=== PATIENT | male | born 1960 | race Caucasian/White ===

== ENCOUNTER 2022-02-08 16:35 | Inpatient (IN) | payer OTHER, MEDICAID ==
[~2022-02-08] VITALS: Ht 188 cm; Wt 46.2 kg
[2022-02-08] MEDS ORDERED: SODIUM CHLORIDE 0.9% 900 ML IV ONE (16:45)
[2022-02-08] MEDS ORDERED: VANCOMYCIN 1GM/WATER(PEG/NADA) 200 ML IV ONE (16:45)
[2022-02-08] MEDS ORDERED: CEFEPIME HCL 2 GM in DEXTROSE 5%-WATER 50 ML IV ONE (16:45)
[2022-02-08] MEDS ORDERED: 0.9% SODIUM CHLORIDE 10 ML SYRINGE IVP PRN (16:45)
[2022-02-08 17:14] LABS: BASOPHILS % (AUTO) 0.2 % (0.0-2.0); EOSINOPHILS % (AUTO) 0.2 % (1.0-6.0); HEMATOCRIT 40.3 % (41-53); HEMOGLOBIN 13.2 g/dL (13.5-17.5); LYMPHOCYTES # (AUTO) 0.4 K/uL (1.0-4.8); LYMPHOCYTES % (AUTO) 1.6 % (22.0-44.0); MEAN CORPUSCULAR HEMOGLOBIN 28.6 pg (26.0-34.0); MEAN CORPUSCULAR HGB CONC 32.7 G/dL (31.0-37.0); MEAN CORPUSCULAR VOLUME 88 fL (80-100); MONOCYTES # (AUTO) 0.5 K/uL (0.1-1.0); MONOCYTES % (AUTO) 1.8 % (2.0-9.0); PLATELET COUNT (AUTO) 130 K/uL (150-450); RED CELL DISTRIBUTION WIDTH 19.1 % (11.5-14.5)
[2022-02-08 17:38] LABS: INR 1.3 (0.9-1.1); PROTHROMBIN TIME 13.5 SEC (9.4-11.6)
[2022-02-08 17:42] LABS: NEUTROPHILS % (AUTO) 96.2 % (40.0-70.0)
[2022-02-08 17:59] LABS: LACTIC ACID 5.1 mmol/L (0.4-2.0)
[2022-02-08 18:46] LABS: ALBUMIN 2.4 g/dL (3.4-5.0); BILIRUBIN,TOTAL 0.9 mg/dL (0.1-1.0); CALCIUM, TOTAL 7.9 mg/dL (8.8-10.5); CREATININE 4.03 mg/dL (0.60-1.30); TOTAL PROTEIN, SERUM 6.3 g/dL (6.4-8.2)
[2022-02-08 18:50] LABS: POTASSIUM 7.1 mmol/L (3.5-5.1)
[2022-02-08] MEDS ORDERED: ALBUTEROL SULFATE 2.5 MG/0.5 ML NEB SOLUTION NEB ONE (19:00)
[2022-02-08] MEDS ORDERED: INSULIN REGULAR, HUMAN 100 UNITS/ML IVP ONE ×2 (19:00→21:30)
[2022-02-08] MEDS ORDERED: CALCIUM GLUCONATE 1,000 MG in DEXTROSE 5%-WATER 50 ML IV ONE (19:00)
[2022-02-08] MEDS ORDERED: DEXTROSE 50%-WATER 25 GM/50 ML SYRINGE IVP ONE ×2 (19:00→21:30)
[2022-02-08 19:08] LABS: APPEARANCE,URINE TURBID (CLEAR); BILIRUBIN,URINE NEGATIVE (NEGATIVE); GLUCOSE, URINE (UA) NEGATIVE (NEGATIVE); KETONES,URINE NEGATIVE (NEGATIVE); LEUKOCYTE ESTERASE ,URINE LARGE (NEGATIVE); NITRATE,URINE NEGATIVE (NEGATIVE); OCCULT BLOOD,URINE LARGE (NEGATIVE); PH,URINE 7.5 (5.0-8.0); PROTEIN,URINE 300-600,SEE CONFIRM mg/dL (NEGATIVE); SPECIFIC GRAVITIY, URINE 1.016 (1.003-1.030)
[2022-02-08 19:20] LABS: RBC,URINE 26-50 /HPF (0-2); SULFOSALICYLIC ACID,URINE 4+ (Negative)
[2022-02-08 19:21] LABS: BACTERIA,URINE Many /HPF (None Seen); WBC,URINE 51-100 /HPF (0-5)
[2022-02-08 19:26] LABS: INFLUENZA TYPE A NEGATIVE FOR TYPE A (NEGATIVE); INFLUENZA TYPE B NEGATIVE FOR TYPE B (NEGATIVE)
[2022-02-08] MEDS ORDERED: NOREPINEPHRINE 8 MG/D5%-WATER 250 ML IV PRN (19:30)
[2022-02-08] MEDS ORDERED: ONDANSETRON HCL 4 MG/2 ML VIAL IVP PRN (19:30)
[2022-02-08] MEDS: SODIUM CHLORIDE 0.9% 1,000 ML IV SCH (20:17)
[2022-02-08 20:39] LABS: CREATININE,URINE RANDOM 39.3 mg/dL (30.0-125.0)
[2022-02-08] MEDS ORDERED: SODIUM CHLORIDE 0.9% 1,000 ML IV ONE (21:00)
[2022-02-08] MEDS: NOREPINEPHRINE 8 MG/D5%-WATER 250 ML IV PRN (21:06)
[2022-02-08] MEDS: PIPERACILLIN SODIUM/TAZOBACTAM 2.25 GM in DEXTROSE 5%-WATER 50 ML IV SCH (21:07)
[2022-02-08 21:08] LABS: CALCIUM, TOTAL 7.9 mg/dL (8.8-10.5); CREATININE 4.22 mg/dL (0.60-1.30)
[2022-02-08 21:13] LABS: POTASSIUM 6.5 mmol/L (3.5-5.1)
[2022-02-08] MEDS ORDERED: SODIUM BICARBONATE [ADULT] 8.4% 50 MEQ/50 ML SYRINGE IVP ONE (21:15)
[2022-02-08] MEDS ORDERED: ALBUTEROL SULFATE 5 MG/ML 20 ML NEB SOLN [BULK] NEB ONE (21:30)
[2022-02-08] MEDS ORDERED: CALCIUM GLUCONATE 100 MG/ML 10 ML IVP ONE (21:30)
[2022-02-08] MEDS ORDERED: ETOMIDATE 2 MG/ML 10 ML VIAL ONE (21:57)
[2022-02-08] MEDS ORDERED: LORazepam 2 MG/ML VIAL IVP ONE (22:00)
[2022-02-08] MEDS ORDERED: LACO100 PO (22:47)
[2022-02-08] MEDS ORDERED: DEXMEDETOMIDINE HCL 400 MCG in SODIUM CHLORIDE 0.9% 96 ML IV PRN (23:00)
[2022-02-08] MEDS: FentaNYL CIT 1000MCG/0.9% NACL 100 ML IV PRN (23:47)
[2022-02-08] MEDS: MIDAZOLAM HCL 100 MG in SODIUM CHLORIDE 0.9% 180 ML IV PRN (23:48)
[2022-02-08] MEDS: PHENYLEPHRINE 200 MG/D5%-WATER 250 ML IV PRN (23:49)
[2022-02-09] MEDS: FentaNYL CIT 1000MCG/0.9% NACL 100 ML IV PRN (00:33)
[2022-02-09] MEDS: MIDAZOLAM HCL 100 MG in SODIUM CHLORIDE 0.9% 180 ML IV PRN (00:33)
[2022-02-09 00:38] LABS: ABG BASE EXCESS -14.8 mmol/L (-2.0-3.0); ABG CARBOXYHEMOGLOBIN 0.3 % (0.0-1.5); ABG HCO3 13.8 mmol/L (22.0-26.0); ABG METHEMOGLOBIN 0.4 % (0.0-1.5); ABG OXYGEN CONTENT 18.2 mL/dL (15.0-23.0); ABG OXYGEN SATURATION 99.4 % (95.0-98.0); ABG OXYHEMOGLOBIN 98.7 % (94.0-100.0); ABG PCO2 37 mmHg (35-45); ABG TOTAL HEMOGLOBIN 12.4 G/dL (12.0-18.0); PO2, ARTERIAL BG 372.8 mmHg (84.0-92.0); SOURCE, BLOOD GAS ARTERIAL; TEMPERATURE, FAHRENHEIT, BG 98.6 FAHREN (96.0-98.6)
[2022-02-09 00:39] LABS: ABG PH 7.179 (7.35-7.450); O2 DEVICE,BLOOD GAS VENTILATOR (ROOM AIR); PEEP,BG 5 cm H2O; SITE, BLOOD GAS LFT RADIAL; VT, ABG 450 ml
[2022-02-09] MEDS: VASOPRESSIN 40 UNITS in DEXTROSE 5%-WATER 98 ML IV PRN ×2 (02:12→02:14)
[2022-02-09] MEDS: PIPERACILLIN SODIUM/TAZOBACTAM 2.25 GM in DEXTROSE 5%-WATER 50 ML IV SCH ×3 (05:03→21:18)
[2022-02-09 05:19] LABS: BASOPHILS % (AUTO) 0.1 % (0.0-2.0); EOSINOPHILS % (AUTO) 2.1 % (1.0-6.0); HEMATOCRIT 36.4 % (41-53); LYMPHOCYTES # (AUTO) 0.4 K/uL (1.0-4.8); LYMPHOCYTES % (AUTO) 1.3 % (22.0-44.0); MEAN CORPUSCULAR HEMOGLOBIN 28.8 pg (26.0-34.0); MEAN CORPUSCULAR VOLUME 87 fL (80-100); MONOCYTES # (AUTO) 0.3 K/uL (0.1-1.0); MONOCYTES % (AUTO) 1.1 % (2.0-9.0); NEUTROPHILS # (AUTO) 28.2 K/uL (1.8-7.7); PLATELET COUNT (AUTO) 118 K/uL (150-450); RED BLOOD CELL COUNT(AUTO) 4.18 MIL/uL (4.50-5.90); RED CELL DISTRIBUTION WIDTH 19.2 % (11.5-14.5)
[2022-02-09] MEDS: SODIUM CHLORIDE 0.9% 1,000 ML IV SCH (05:20)
[2022-02-09 05:21] LABS: NEUTROPHILS % (AUTO) 95.4 % (40.0-70.0)
[2022-02-09 05:27] LABS: CALCIUM, TOTAL 8.4 mg/dL (8.8-10.5); CREATININE 3.39 mg/dL (0.60-1.30); MAGNESIUM 2.3 mg/dL (1.80-2.40)
[2022-02-09 05:31] LABS: POTASSIUM 6.3 mmol/L (3.5-5.1)
[2022-02-09] MEDS ORDERED: SODIUM ZIRCONIUM CYCLOSILICATE 5 GM POWDER PACKET PO ONE (05:45)
[2022-02-09] MEDS ORDERED: INSULIN REGULAR, HUMAN 100 UNITS/ML IVP ONE (05:45)
[2022-02-09] MEDS ORDERED: DEXTROSE 50%-WATER 25 GM/50 ML SYRINGE IVP ONE (05:45)
[2022-02-09] MEDS ORDERED: ALBUTEROL SULFATE 5 MG/ML 20 ML NEB SOLN [BULK] NEB ONE (05:45)
[2022-02-09] MEDS ORDERED: CALCIUM GLUCONATE 100 MG/ML 10 ML IVP ONE (05:45)
[2022-02-09] MEDS ORDERED: 0.9% SODIUM CHLORIDE 15 ML NEB SOLUTION NEB ONE (08:01)
[2022-02-09] MEDS: LACOSAMIDE 100 MG TABLET PO SCH ×2 (08:58→20:12)
[2022-02-09 09:56] LABS: COVID AG,FIA SOURCE NASAL SWAB
[2022-02-09] MEDS ORDERED: LACO150T2 PO (11:14)
[2022-02-09] MEDS ORDERED: LACO100 PO (11:14)
[2022-02-09 12:26] LABS: CALCIUM, TOTAL 7.9 mg/dL (8.8-10.5); CREATININE 3.55 mg/dL (0.60-1.30); POTASSIUM 5.9 mmol/L (3.5-5.1)
[2022-02-09] MEDS: INSULIN LISPRO 100 UNITS/ML SQ PRN ×2 (12:41→18:50)
[2022-02-09] MEDS: SODIUM BICARBONATE 75 MEQ in SODIUM CHLORIDE 0.45% 1,000 ML IV SCH ×2 (12:50→22:48)
[2022-02-09] MEDS: PHENYLEPHRINE 200 MG/D5%-WATER 250 ML IV PRN ×2 (12:51→20:11)
[2022-02-09] MEDS: NOREPINEPHRINE 8 MG/D5%-WATER 250 ML IV PRN ×2 (12:52→19:47)
[2022-02-09 17:26] LABS: CALCIUM, TOTAL 7.6 mg/dL (8.8-10.5); CREATININE 3.41 mg/dL (0.60-1.30); POTASSIUM 5.1 mmol/L (3.5-5.1)
[2022-02-09 19:01] LABS: GLUCOSE,POINT OF CARE 262 MG/DL (70-110)
[2022-02-09] MEDS ORDERED: CLINDAMYCIN 900 MG/D5% WATER 50 ML IV ONE (22:00)
[2022-02-09] MEDS ORDERED: *CLINICAL-MEROPENEM DOSING CLINICAL ONE (22:00)
[2022-02-09] MEDS: INSULIN GLARGINE,HUM.REC.ANLOG 100 UNITS/ML SQ SCH (22:15)
[2022-02-10] MEDS ORDERED: SODIUM CHLORIDE 0.9% 250 ML IV ONE ×3 (01:45→15:00)
[2022-02-10] MEDS: NOREPINEPHRINE 8 MG/D5%-WATER 250 ML IV PRN ×2 (02:41→11:30)
[2022-02-10] MEDS: MEROPENEM 500 MG in SODIUM CHLORIDE 0.9% 50 ML IV SCH ×2 (04:27→16:40)
[2022-02-10] MEDS: VASOPRESSIN 40 UNITS in DEXTROSE 5%-WATER 98 ML IV PRN (04:28)
[2022-02-10 05:41] LABS: HEMATOCRIT 29.4 % (41-53); HEMOGLOBIN 9.7 g/dL (13.5-17.5); MEAN CORPUSCULAR HEMOGLOBIN 28.9 pg (26.0-34.0); MEAN CORPUSCULAR HGB CONC 33.2 G/dL (31.0-37.0); MEAN CORPUSCULAR VOLUME 87 fL (80-100); RED BLOOD CELL COUNT(AUTO) 3.38 MIL/uL (4.50-5.90); RED CELL DISTRIBUTION WIDTH 19.3 % (11.5-14.5)
[2022-02-10 05:56] LABS: C.DIFF GDH ANTIGEN, Stool Positive (Negative); C.DIFF TOXINS A&B, Stool Negative (Negative)
[2022-02-10 05:57] LABS: CALCIUM, TOTAL 7.3 mg/dL (8.8-10.5); CREATININE 2.95 mg/dL (0.60-1.30); MAGNESIUM 1.7 mg/dL (1.80-2.40); POTASSIUM 4.5 mmol/L (3.5-5.1)
[2022-02-10 08:20] LABS: PLATELET COUNT (AUTO) 86 K/uL (150-450)
[2022-02-10 08:23] LABS: BAND NEUTROPHILS % (MANUAL) 8 % (0-5); LYMPHOCYTES % (MANUAL) 6 % (22-44); MONOCYTES % (MANUAL) 3 % (2-9); SEGMENTED NEUTROPHILS % 83 % (40-70)
[2022-02-10] MEDS: LACOSAMIDE 100 MG TABLET PO SCH ×2 (09:15→20:49)
[2022-02-10] MEDS: SODIUM BICARBONATE 75 MEQ in SODIUM CHLORIDE 0.45% 1,000 ML IV SCH ×2 (09:15→20:49)
[2022-02-10] MEDS ORDERED: MIDAZOLAM HCL 100 MG in SODIUM CHLORIDE 0.9% 180 ML IV PRN (11:00)
[2022-02-10 12:00] VITALS: BP 110/62
[2022-02-10] MEDS ORDERED: ROCURONIUM BROMIDE 10 MG/ML 5 ML VIAL IVP ONE (12:00)
[2022-02-10] MEDS: INSULIN LISPRO 100 UNITS/ML SQ PRN (12:51)
[2022-02-10] MEDS ORDERED: LORazepam 2 MG/ML VIAL IVP ONE (13:30)
[2022-02-10] MEDS: ALBUMIN HUMAN 25%-25GM/100ML 100 ML IV SCH ×2 (14:07→20:50)
[2022-02-10] MEDS: FentaNYL CIT 1000MCG/0.9% NACL 100 ML IV PRN ×2 (14:07→23:20)
[2022-02-10] MEDS ORDERED: LORazepam 2 MG/ML VIAL IVP PRN (15:00)
[2022-02-10 16:00] VITALS: BP 93/65
[2022-02-10] MEDS ORDERED: SODIUM CHLORIDE 0.9% 500 ML IV ONE (16:43)
[2022-02-10 19:07] LABS: GLUCOSE,POINT OF CARE 159 MG/DL (70-110)
[2022-02-10 20:00] VITALS: BP 94/55
[2022-02-10] MEDS: INSULIN GLARGINE,HUM.REC.ANLOG 100 UNITS/ML SQ SCH (20:49)
[2022-02-10 20:55] LABS: GLUCOSE,POINT OF CARE 307 MG/DL (70-110)
[2022-02-10 20:56] LABS: GLUCOSE,POINT OF CARE 142 MG/DL (70-110)
[2022-02-10] MEDS: PHENYLEPHRINE 200 MG/D5%-WATER 250 ML IV PRN (23:21)
[2022-02-11] VITALS: BP 99/62
[2022-02-11] MEDS: ALBUMIN HUMAN 25%-25GM/100ML 100 ML IV SCH ×4 (01:10→21:07)
[2022-02-11 04:00] VITALS: BP 97/60
[2022-02-11] MEDS: VASOPRESSIN 40 UNITS in DEXTROSE 5%-WATER 98 ML IV PRN (04:17)
[2022-02-11] MEDS: MEROPENEM 500 MG in SODIUM CHLORIDE 0.9% 50 ML IV SCH ×2 (04:17→17:28)
[2022-02-11 06:10] LABS: CALCIUM, TOTAL 7.3 mg/dL (8.8-10.5); CREATININE 2.25 mg/dL (0.60-1.30)
[2022-02-11 06:12] LABS: MAGNESIUM 1.4 mg/dL (1.80-2.40); PHOSPHORUS 3.7 mg/dL (2.5-4.9)
[2022-02-11 06:18] LABS: POTASSIUM 2.6 mmol/L (3.5-5.1)
[2022-02-11 06:41] LABS: GLUCOSE,POINT OF CARE 122 MG/DL (70-110)
[2022-02-11 06:41] LABS: GLUCOSE,POINT OF CARE 134 MG/DL (70-110)
[2022-02-11] MEDS: SODIUM BICARBONATE 75 MEQ in SODIUM CHLORIDE 0.45% 1,000 ML IV SCH (06:43)
[2022-02-11] MEDS ORDERED: MAGNESIUM SULFATE 1 GM in DEXTROSE 5%-WATER 50 ML IV ONE (07:30)
[2022-02-11 07:52] LABS: HEMATOCRIT 23.2 % (41-53); HEMOGLOBIN 7.9 g/dL (13.5-17.5); MEAN CORPUSCULAR HEMOGLOBIN 29.4 pg (26.0-34.0); MEAN CORPUSCULAR HGB CONC 34.2 G/dL (31.0-37.0); MEAN CORPUSCULAR VOLUME 86 fL (80-100); PLATELET COUNT (AUTO) 49 K/uL (150-450); RED CELL DISTRIBUTION WIDTH 19.5 % (11.5-14.5)
[2022-02-11 08:00] VITALS: BP 107/61
[2022-02-11 08:34] LABS: BAND NEUTROPHILS % (MANUAL) 7 % (0-5); EOSINOPHILS % (MANUAL) 1 % (1-6); LYMPHOCYTES % (MANUAL) 7 % (22-44); MONOCYTES % (MANUAL) 3 % (2-9); SEGMENTED NEUTROPHILS % 82 % (40-70)
[2022-02-11] MEDS: POTASSIUM CHL 10 MEQ/WATER 50 ML IV SCH ×8 (08:45→23:48)
[2022-02-11] MEDS: LACOSAMIDE 100 MG TABLET PO SCH ×2 (08:45→21:07)
[2022-02-11 12:00] VITALS: BP 103/65
[2022-02-11 12:21] LABS: ABG BASE EXCESS 1.2 mmol/L (-2.0-3.0); ABG CARBOXYHEMOGLOBIN 0.4 % (0.0-1.5); ABG HCO3 25.6 mmol/L (22.0-26.0); ABG METHEMOGLOBIN 0.3 % (0.0-1.5); ABG OXYGEN CONTENT 12.7 mL/dL (15.0-23.0); ABG OXYHEMOGLOBIN 98.3 % (94.0-100.0); ABG PCO2 37 mmHg (35-45); ABG PH 7.451 (7.35-7.450); ABG TOTAL HEMOGLOBIN 8.9 G/dL (12.0-18.0); PO2, ARTERIAL BG 153.2 mmHg (84.0-92.0); SOURCE, BLOOD GAS ARTERIAL; TEMPERATURE, FAHRENHEIT, BG 97.3 FAHREN (96.0-98.6)
[2022-02-11 12:22] LABS: ABG A-A DIFF O2 54.1 mmHg (10-20.0); O2 DEVICE,BLOOD GAS VENTILATOR (ROOM AIR); PEEP,BG 5 cm H2O; SITE, BLOOD GAS RT BRACHIAL; VT, ABG 450 ml
[2022-02-11] MEDS: DEXTROSE 50%-WATER 25 GM/50 ML SYRINGE IVP PRN ×2 (12:38→20:53)
[2022-02-11 15:04] LABS: CALCIUM, TOTAL 7.7 mg/dL (8.8-10.5); CREATININE 1.82 mg/dL (0.60-1.30); MAGNESIUM 1.6 mg/dL (1.80-2.40); PHOSPHORUS 2.5 mg/dL (2.5-4.9)
[2022-02-11 15:09] LABS: POTASSIUM 2.5 mmol/L (3.5-5.1)
[2022-02-11] MEDS ORDERED: MAGNESIUM SULFATE 2 GM/WATER 50 ML IV ONE (15:30)
[2022-02-11] MEDS ORDERED: SODIUM CHLORIDE 0.45% 1,000 ML IV SCH (15:30)
[2022-02-11 16:00] VITALS: BP 100/61
[2022-02-11] MEDS ORDERED: DAPTOMYCIN 450 MG in SODIUM CHLORIDE 0.9% 50 ML IV SCH (18:00)
[2022-02-11 19:01] LABS: GLUCOSE,POINT OF CARE 55 MG/DL (70-110)
[2022-02-11 19:01] LABS: GLUCOSE,POINT OF CARE 153 MG/DL (70-110)
[2022-02-11 19:01] LABS: GLUCOSE,POINT OF CARE 84 MG/DL (70-110)
[2022-02-11 19:01] LABS: GLUCOSE,POINT OF CARE 143 MG/DL (70-110)
[2022-02-11 20:00] VITALS: BP 104/59
[2022-02-11 21:06] LABS: CREATININE 1.86 mg/dL (0.60-1.30); MAGNESIUM 2.1 mg/dL (1.80-2.40); PHOSPHORUS 2.2 mg/dL (2.5-4.9)
[2022-02-11] MEDS: VANCOMYCIN HCL 125 MG/2.5 ML SOLUTION ORAL.SYG PO SCH (21:06)
[2022-02-11] MEDS: DOXYCYCLINE HYCLATE 100 MG in DEXTROSE 5%-WATER 100 ML IV SCH (21:07)
[2022-02-11 21:09] LABS: POTASSIUM 2.9 mmol/L (3.5-5.1)
[2022-02-11 21:11] LABS: GLUCOSE,POINT OF CARE 64 MG/DL (70-110)
[2022-02-11] MEDS: DEXTROSE 5%-0.45% SODIUM CHL 1,000 ML IV SCH (22:43)
[2022-02-12] VITALS: BP 102/52
[2022-02-12] MEDS: VANCOMYCIN HCL 125 MG/2.5 ML SOLUTION ORAL.SYG PO SCH ×4 (01:16→18:49)
[2022-02-12] MEDS: ALBUMIN HUMAN 25%-25GM/100ML 100 ML IV SCH ×4 (01:16→19:55)
[2022-02-12 02:10] LABS: GLUCOSE,POINT OF CARE 138 MG/DL (70-110)
[2022-02-12 02:10] LABS: GLUCOSE,POINT OF CARE 124 MG/DL (70-110)
[2022-02-12 02:10] LABS: GLUCOSE,POINT OF CARE 37 MG/DL (70-110)
[2022-02-12 04:00] VITALS: BP 94/48
[2022-02-12] MEDS: MEROPENEM 500 MG in SODIUM CHLORIDE 0.9% 50 ML IV SCH ×2 (04:14→16:15)
[2022-02-12] MEDS: PHENYLEPHRINE 200 MG/D5%-WATER 250 ML IV PRN ×2 (05:55→17:27)
[2022-02-12 06:39] LABS: EOSINOPHILS % (AUTO) 1.7 % (1.0-6.0); HEMOGLOBIN 7.4 g/dL (13.5-17.5); LYMPHOCYTES # (AUTO) 0.5 K/uL (1.0-4.8); LYMPHOCYTES % (AUTO) 7.6 % (22.0-44.0); MEAN CORPUSCULAR HEMOGLOBIN 28.7 pg (26.0-34.0); MEAN CORPUSCULAR HGB CONC 33.5 G/dL (31.0-37.0); MEAN CORPUSCULAR VOLUME 86 fL (80-100); MONOCYTES # (AUTO) 0.2 K/uL (0.1-1.0); MONOCYTES % (AUTO) 3.5 % (2.0-9.0); NEUTROPHILS # (AUTO) 5.9 K/uL (1.8-7.7); PLATELET COUNT (AUTO) 34 K/uL (150-450); RED BLOOD CELL COUNT(AUTO) 2.57 MIL/uL (4.50-5.90); RED CELL DISTRIBUTION WIDTH 18.7 % (11.5-14.5)
[2022-02-12] MEDS: INSULIN LISPRO 100 UNITS/ML SQ PRN ×3 (06:39→17:35)
[2022-02-12 06:44] LABS: NEUTROPHILS % (AUTO) 87.2 % (40.0-70.0)
[2022-02-12 06:52] LABS: GLUCOSE,POINT OF CARE 156 MG/DL (70-110)
[2022-02-12 06:53] LABS: ALBUMIN 2.8 g/dL (3.4-5.0); BILIRUBIN,TOTAL 3.6 mg/dL (0.1-1.0); CALCIUM, TOTAL 8.2 mg/dL (8.8-10.5); CREATININE 1.76 mg/dL (0.60-1.30); MAGNESIUM 1.8 mg/dL (1.80-2.40); PHOSPHORUS 1.7 mg/dL (2.5-4.9); TOTAL PROTEIN, SERUM 5.1 g/dL (6.4-8.2)
[2022-02-12 07:01] LABS: POTASSIUM 2.9 mmol/L (3.5-5.1)
[2022-02-12] MEDS: FentaNYL CIT 1000MCG/0.9% NACL 100 ML IV PRN (07:30)
[2022-02-12] MEDS ORDERED: SODIUM PHOS,M-BASIC-D-BASIC 20 MEQ in DEXTROSE 5%-WATER 100 ML IV ONE (08:30)
[2022-02-12] MEDS: DOXYCYCLINE HYCLATE 100 MG in DEXTROSE 5%-WATER 100 ML IV SCH ×2 (09:10→19:55)
[2022-02-12] MEDS: DEXTROSE 5%-0.45% SODIUM CHL 1,000 ML IV SCH ×2 (09:17→17:27)
[2022-02-12] MEDS: POTASSIUM CHL 10 MEQ/WATER 50 ML IV SCH ×7 (09:26→20:30)
[2022-02-12] MEDS: LACOSAMIDE 100 MG TABLET PO SCH ×2 (09:29→20:07)
[2022-02-12 12:55] VITALS: BP 110/58
[2022-02-12 16:00] VITALS: BP 108/67
[2022-02-12 19:21] LABS: GLUCOSE,POINT OF CARE 200 MG/DL (70-110)
[2022-02-12 19:21] LABS: GLUCOSE,POINT OF CARE 155 MG/DL (70-110)
[2022-02-12 20:00] VITALS: BP 112/70
[2022-02-13] VITALS: BP 131/72
[2022-02-13] MEDS: VANCOMYCIN HCL 125 MG/2.5 ML SOLUTION ORAL.SYG PO SCH ×4 (00:04→18:13)
[2022-02-13] MEDS: INSULIN LISPRO 100 UNITS/ML SQ PRN ×4 (00:42→18:13)
[2022-02-13 01:31] LABS: GLUCOSE,POINT OF CARE 239 MG/DL (70-110)
[2022-02-13] MEDS: ALBUMIN HUMAN 25%-25GM/100ML 100 ML IV SCH ×3 (01:53→15:32)
[2022-02-13] MEDS: DEXTROSE 5%-0.45% SODIUM CHL 1,000 ML IV SCH ×2 (03:24→14:30)
[2022-02-13 04:00] VITALS: BP 134/80
[2022-02-13] MEDS: MEROPENEM 500 MG in SODIUM CHLORIDE 0.9% 50 ML IV SCH (06:04)
[2022-02-13 06:35] LABS: BASOPHILS % (AUTO) 0.1 % (0.0-2.0); EOSINOPHILS % (AUTO) 1.2 % (1.0-6.0); HEMATOCRIT 25.4 % (41-53); HEMOGLOBIN 8.5 g/dL (13.5-17.5); LYMPHOCYTES # (AUTO) 0.6 K/uL (1.0-4.8); LYMPHOCYTES % (AUTO) 7.7 % (22.0-44.0); MEAN CORPUSCULAR HGB CONC 33.5 G/dL (31.0-37.0); MEAN CORPUSCULAR VOLUME 87 fL (80-100); MONOCYTES # (AUTO) 0.5 K/uL (0.1-1.0); MONOCYTES % (AUTO) 6.4 % (2.0-9.0); NEUTROPHILS # (AUTO) 6.8 K/uL (1.8-7.7); NEUTROPHILS % (AUTO) 84.6 % (40.0-70.0); PLATELET COUNT (AUTO) 27 K/uL (150-450); RED BLOOD CELL COUNT(AUTO) 2.94 MIL/uL (4.50-5.90); RED CELL DISTRIBUTION WIDTH 18.8 % (11.5-14.5)
[2022-02-13] MEDS: PHENYLEPHRINE 200 MG/D5%-WATER 250 ML IV PRN (06:48)
[2022-02-13 07:04] LABS: ALBUMIN 3.4 g/dL (3.4-5.0); BILIRUBIN,TOTAL 5.7 mg/dL (0.1-1.0); C-REACTIVE PROTEIN QUANT 12.07 mg/dL (0.00-0.30); CALCIUM, TOTAL 9.1 mg/dL (8.8-10.5); CREATININE 1.45 mg/dL (0.60-1.30); MAGNESIUM 1.4 mg/dL (1.80-2.40); TOTAL PROTEIN, SERUM 5.5 g/dL (6.4-8.2)
[2022-02-13] MEDS: LACOSAMIDE 100 MG TABLET PO SCH (07:26)
[2022-02-13] MEDS: DOXYCYCLINE HYCLATE 100 MG in DEXTROSE 5%-WATER 100 ML IV SCH (07:26)
[2022-02-13 08:00] VITALS: BP 134/78
[2022-02-13] MEDS ORDERED: POTASSIUM PHOS,M-BASIC-D-BASIC 20 MEQ in DEXTROSE 5%-WATER 100 ML IV ONE (08:30)
[2022-02-13] MEDS ORDERED: MAGNESIUM SULFATE 2 GM/WATER 50 ML IV ONE (08:30)
[2022-02-13] MEDS: POTASSIUM CHL 10 MEQ/WATER 50 ML IV SCH ×2 (10:03→10:38)
[2022-02-13 12:00] VITALS: BP 110/67
[2022-02-13] MEDS ORDERED: METOCLOPRAMIDE HCL 5 MG/ML 2 ML VIAL IVP PRN (13:45)
[2022-02-13] MEDS ORDERED: MEROPENEM 1 GM in SODIUM CHLORIDE 0.9% 100 ML IV SCH (14:00)
[2022-02-13] MEDS ORDERED: MEBROFENIN TC99M/MCL ISOTOPE 1 EA INJ INJ ONE (14:10)
[2022-02-13] MEDS ORDERED: *CLINICAL-RX DOSING [ENTER DRUG IN COMMENTS] CLINICAL ONE (15:00)
[2022-02-13 16:00] VITALS: BP 116/68
[2022-02-13] MEDS ORDERED: AMPICILLIN SODIUM 2 GM/NS 100 ML IV SCH (16:00)
[2022-02-13] MEDS ORDERED: IMIPENEM/CILASTATIN SODIUM 500 MG in SODIUM CHLORIDE 0.9% 100 ML IV SCH (17:00)
[2022-02-13 19:21] LABS: GLUCOSE,POINT OF CARE 195 MG/DL (70-110)
[2022-02-13 19:21] LABS: GLUCOSE,POINT OF CARE 187 MG/DL (70-110)
[2022-02-13 19:21] LABS: GLUCOSE,POINT OF CARE 209 MG/DL (70-110)
[2022-02-14 19:06] LABS: LEGIONELLA PNEUMO AG URINE Negative (Negative); S PNEUMO SOURCE Urine; STREP PNEUMONIAE AG URINE Negative (Negative)
== END 2022-02-13 19:40 | DRG 870 ==
LOC: EMS 19:16 → ICU 02-10 09:39
PROVIDERS: ADMIT Internal Medicine; ATTEND Internal Medicine
PROC: 0BH17EZ Insertion of Endotracheal Airway into Trachea, Via Natural or Artificial Opening (ICD-10-PCS; principal; 2022-02-10)
PROC: 5A1955Z Respiratory Ventilation, Greater than 96 Consecutive Hours (ICD-10-PCS; 2022-02-10)
DX: A41.51 Sepsis due to Escherichia coli [E. coli] (principal); E10.10 Type 1 diabetes mellitus with ketoacidosis without coma; E43 Unspecified severe protein-calorie malnutrition; N17.0 Acute kidney failure with tubular necrosis; J96.00 Acute respiratory failure, unspecified whether with hypoxia or hypercapnia; J18.9 Pneumonia, unspecified organism; I49.01 Ventricular fibrillation; R53.2 Functional quadriplegia; R65.21 Severe sepsis with septic shock; A04.72 Enterocolitis due to Clostridium difficile, not specified as recurrent; E87.1 Hypo-osmolality and hyponatremia; Z16.24 Resistance to multiple antibiotics; N39.0 Urinary tract infection, site not specified; M62.82 Rhabdomyolysis; K80.21 Calculus of gallbladder without cholecystitis with obstruction; G93.1 Anoxic brain damage, not elsewhere classified; Z68.1 Body mass index [BMI] 19.9 or less, adult; J98.11 Atelectasis; J90 Pleural effusion, not elsewhere classified; Z20.822 Contact with and (suspected) exposure to COVID-19; D64.9 Anemia, unspecified; N40.1 Benign prostatic hyperplasia with lower urinary tract symptoms; N18.32 Chronic kidney disease, stage 3b; R13.10 Dysphagia, unspecified; K59.00 Constipation, unspecified; I48.0 Paroxysmal atrial fibrillation; I12.9 Hypertensive chronic kidney disease with stage 1 through stage 4 chronic kidney disease, or unspecified chronic kidney disease; G40.909 Epilepsy, unspecified, not intractable, without status epilepticus; E87.6 Hypokalemia; E87.5 Hyperkalemia; B96.4 Proteus (mirabilis) (morganii) as the cause of diseases classified elsewhere; F32.9 Major depressive disorder, single episode, unspecified; K21.9 Gastro-esophageal reflux disease without esophagitis; E10.22 Type 1 diabetes mellitus with diabetic chronic kidney disease; E78.1 Pure hyperglyceridemia; E83.42 Hypomagnesemia; E83.39 Other disorders of phosphorus metabolism; D69.6 Thrombocytopenia, unspecified; Z79.899 Other long term (current) drug therapy; Z95.810 Presence of automatic (implantable) cardiac defibrillator; Z93.1 Gastrostomy status; Z87.440 Personal history of urinary (tract) infections; Z79.4 Long term (current) use of insulin; Z74.01 Bed confinement status; Z88.8 Allergy status to other drugs, medicaments and biological substances
CPT/HCPCS: 36600; 70450; 71045; 71250; 72192; 74150; 78226; 80048; 80053; 81001; 81002; 82009; 82271; 82550; 82570; 82805; 82962; 83605; 83735; 83880; 84100; 84132; 84300; 84484; 85025; 85610; 86140; 86738; 87040; 87045; 87077; 87081; 87086; 87186; 87205; 87324; 87449; 87804; 87899; 89055; 93005; 93306; 93970; 94002; 94003; 99291; A9537; G0238; G0378; J0290; J0610; J0692; J0743; J0878; J1815; J2060; J2185; J2250; J2370; J2543; J2765; J3475; J3480; J3490; J7040; J7050; J7060; P9046; Q9967; 36415-L1; 36415-TC; J7611; X7700

== ENCOUNTER 2023-11-10 13:46 | Emergency (ER) | payer OTHER ==
[~2023-11-10] VITALS: Ht 172.7 cm; Wt 48.3 kg
[~2023-11-10 13:46] MED LIST: LACO100T14 PO; LACO150T2 PO
[2023-11-10 15:04] VITALS: TEMP 101.2
[2023-11-10] MEDS ORDERED: ATOR20TA65 PO (15:24)
[2023-11-10] MEDS ORDERED: MIDO5TAB5 PO (15:24)
[2023-11-10] MEDS ORDERED: OMEP20CA12 PO (15:24)
[2023-11-10] MEDS ORDERED: TAMS0.4C94 PO (15:24)
[2023-11-10] MEDS ORDERED: MIRT-92 PO (15:24)
[2023-11-10] MEDS ORDERED: INSU100I94 SQ (15:24)
[2023-11-10] MEDS ORDERED: INSU100V SQ (15:24)
[2023-11-10] MEDS: CefTRIAXone 1 GM/DEXTROSE 50 ML IV ONE (15:27)
[2023-11-10] MEDS: SODIUM CHLORIDE 0.9% 1,450 ML IV ONE (15:28)
[2023-11-10] MEDS ORDERED: 0.9% SODIUM CHLORIDE 10 ML SYRINGE IVP PRN (15:30)
[2023-11-10 15:53] LABS: BASOPHILS % (AUTO) 0.8 % (0.0-2.0); EOSINOPHILS % (AUTO) 0.1 % (1.0-6.0); HEMATOCRIT 31.8 % (41-53); HEMOGLOBIN 10.1 g/dL (13.5-17.5); LYMPHOCYTES % (AUTO) 5.2 % (22.0-44.0); MEAN CORPUSCULAR HEMOGLOBIN 26.4 pg (26.0-34.0); MEAN CORPUSCULAR HGB CONC 31.7 G/dL (31.0-37.0); MEAN CORPUSCULAR VOLUME 83 fL (80-100); MONOCYTES # (AUTO) 0.8 K/uL (0.1-1.0); MONOCYTES % (AUTO) 4.2 % (2.0-9.0); PLATELET COUNT (AUTO) 319 K/uL (150-450); RED BLOOD CELL COUNT(AUTO) 3.81 MIL/uL (4.50-5.90); RED CELL DISTRIBUTION WIDTH 17.2 % (11.5-14.5)
[2023-11-10 15:54] LABS: APPEARANCE,URINE HAZY (CLEAR); BILIRUBIN,URINE NEGATIVE (NEGATIVE); COLOR,URINE YELLOW (YELLOW); GLUCOSE, URINE (UA) >=1000 mg/dL (NEGATIVE); KETONES,URINE NEGATIVE (NEGATIVE); LEUKOCYTE ESTERASE ,URINE LARGE (NEGATIVE); NITRATE,URINE POSITIVE (NEGATIVE); OCCULT BLOOD,URINE SMALL (NEGATIVE); PROTEIN,URINE 30-70 mg/dL (NEGATIVE); SPECIFIC GRAVITIY, URINE 1.026 (1.003-1.030); UROBILINOGEN,URINE <=1.0 mg/dL (<=1.0)
[2023-11-10 15:56] LABS: NEUTROPHILS % (AUTO) 89.7 % (40.0-70.0)
[2023-11-10 16:01] LABS: ANION GAP 7 mmol/L (8-16); CALCIUM, TOTAL 9.3 mg/dL (8.8-10.5); CARBON DIOXIDE 28 mmol/L (22-29); CHLORIDE 101 mmol/L (98-107); CREATININE 0.78 mg/dL (0.60-1.30); GLOMERULAR FILTR. RATE CALC > 60 mL/min (>60); GLUCOSE,RANDOM 213 mg/dL (70-110); POTASSIUM 3.8 mmol/L (3.5-5.1); SODIUM SERUM 136 mmol/L (136-145); UREA NITROGEN, BLOOD 28 mg/dL (7-18)
[2023-11-10 16:07] LABS: ALANINE AMINOTRANSFERASE 127 U/L (12-78); ALBUMIN 2.4 g/dL (3.4-5.0); ALKALINE PHOSPHATASE 226 U/L (46-116); ASPARTATE AMINOTRANSFERASE 33 U/L (15-37); BILIRUBIN,TOTAL 0.5 mg/dL (0.1-1.0); TOTAL PROTEIN, SERUM 7.6 g/dL (6.4-8.2)
[2023-11-10 16:09] LABS: LACTIC ACID 1.2 mmol/L (0.4-2.0); TROPONIN I-HIGH SENSITIVITY 5 ng/L (<76)
[2023-11-10 16:10] LABS: B-TYPE NATRIURETIC PEPTIDE 18 pg/mL (0-100)
[2023-11-10 16:10] LABS: RBC,URINE 0-2 /HPF (0-2); WBC,URINE >100 /HPF (0-5)
[2023-11-10 16:11] LABS: BACTERIA,URINE Many /HPF (None Seen)
[2023-11-10] MEDS: ACETAMINOPHEN 650 MG/ISO-OSM 65 ML IV ONE (16:33)
[2023-11-10 16:43] LABS: INFLUENZA A-RTPCR,COMBO NEGATIVE (NEGATIVE); INFLUENZA B-RTPCR,COMBO NEGATIVE (NEGATIVE); RESPIRATORY SYNCYTIAL VRS-PCR NEGATIVE (NEGATIVE); SARS COVID19 RTPCR, COMBO NEGATIVE (NEGATIVE)
[2023-11-10 17:00] VITALS: BP 110/72; PULSE 100; RESP 16
[2023-11-10] MEDS: VANCOMYCIN 1GM/WATER(PEG/NADA) 200 ML IV ONE (17:05)
== END 2023-11-10 19:12 | disposition admitted as inpatient to this hospital (09) ==
LOC: EMS 13:46
DX: A41.9 Sepsis, unspecified organism (principal); F32.A Depression, unspecified; E11.9 Type 2 diabetes mellitus without complications; I10 Essential (primary) hypertension; Z98.890 Other specified postprocedural states; Z88.6 Allergy status to analgesic agent; Z88.8 Allergy status to other drugs, medicaments and biological substances; Z20.822 Contact with and (suspected) exposure to COVID-19
CPT/HCPCS: 99291; 96365; 0241U; 96367; 96361; 80053; 81001; 83605; 83880; 84484; 85025; 87040; 87205; 36415; 87086; 87077; 87186; 71045; 93005; 84145; J0696; J7030; J0131; J3490